=== PATIENT | female | born 1975 | race Caucasian/White ===

== ENCOUNTER 2020-10-20 22:19 | Emergency (ER) | payer OTHER, MEDICAID ==
[~2020-10-20] VITALS: Ht 157.5 cm; Wt 53.2 kg
[2020-10-20 22:34] VITALS: BP 99/70
[2020-10-20] MEDS ORDERED: CLIN300C70 PO (23:15)
[2020-10-20] MEDS ORDERED: clindamycin 150mg capsule PO ONE (23:15)
== END 2020-10-20 23:46 | disposition home or self-care (01) ==
LOC: ER 22:20
DX: K04.7 Periapical abscess without sinus (principal)
CPT/HCPCS: 99283